=== PATIENT | male | born 1955 | race Caucasian/White ===

== ENCOUNTER → 2024-06-01 | Outpatient (CLI) | payer MEDICARE ==
[2024-06-01 18:40] LABS: Basophils # (A) 0.08 X 10*3/uL (0.00-0.10); Eosinophils # (A) 0.26 X 10*3/uL (0.04-0.35); Eosinophils % (A) 3.4 %; HCT 45.5 % (39.6-50.0); HGB 15.4 g/dL (13.0-17.0); Lymphocytes # (A) 2.34 X 10*3/uL (0.90-5.00); Lymphocytes % (A) 30.4 %; MCHC 33.8 g/dL (32.0-37.0); MCV 88.5 FL (80.0-97.0); Mean Platelet Volume 11.6 FL (9.5-12.2); Monocytes # (A) 0.65 X 10*3/uL (0.20-1.00); Monocytes % (A) 8.4 %; NRBC Per 100 WBC 0 X 10*3/uL (0.00-0.01); Neutrophils # (A) 4.35 X 10*3/uL (1.80-7.70); Neutrophils % (A) 56.4 %; Platelet Count 294 X 10*3/uL (140-440); RBC 5.14 X 10*6/uL (4.40-5.60); RDW 12.4 % (11.5-14.5); WBC 7.71 X 10*3/uL (4.50-10.00)
[2024-06-01 19:04] LABS: Protein, Total 6.5 g/dL (6.2-8.2)
[2024-06-01 19:21] LABS: ALT 243 U/L (10-49); AST 122 U/L (14-35); Albumin/Globulin Ratio 1.74 Ratio (1.60-3.17); Alkaline Phosphatase 462 U/L (41-126); BUN/Creat Ratio 13.89 Ratio (12.00-20.00); Blood Urea Nitrogen 12.5 mg/dL (9.0-27.0); Calcium 9.1 mg/dL (8.7-10.3); Carbon Dioxide 23.1 mmol/L (21.6-31.8); Chloride 102 mmol/L (96-109); Globulin 2.3 g/dL (1.6-3.3); Glucose 186 mg/dL (70-110); Hepatitis B Surface Antigen Nonreactive (Nonreactive); Hepatitis C IgG Antibody Nonreactive (Nonreactive); Iron 104 UG/DL (65-175); Potassium 4.2 mmol/L (3.5-5.5); Sodium 138 mmol/L (135-145); Total Bilirubin 0.8 mg/dL (0.3-1.2); Total Iron Binding Capacity 318 UG/DL (228-460); Total Protein 6.3 g/dL (6.2-8.2)
[2024-06-01 19:34] LABS: Ceruloplasmin 27.5 mg/dL (20.0-60.0)
== END | disposition home or self-care (01) ==
LOC: LABWHC1 15:40
PROVIDERS: ATTEND Internal Medicine Gastroenterology
DX: R74.01 Elevation of levels of liver transaminase levels (principal)
CPT/HCPCS: 36415; 80053; 82103; 82390; 82728; 83516; 83540; 83550; 84165; 85025; 86038; 86803; 87340

== ENCOUNTER → 2024-07-16 | Outpatient (CLI) | payer MEDICARE ==
--- NOTE | 2024-07-16 13:19 | MR ---
EXAMINATION TYPE: MR MRCP DATE OF EXAM: 07/16/2024 12:54 PM COMPARISON: None. CLINICAL INDICATION: Male, 69 years old with history of R74.01 ELEVATION OF LEVELS OF LIVER TRANSAMIN ASE L; TECHNIQUE: Multi planar, T2-weighted imaging with and without fat saturation and chemical shift imag ing was performed of the abdomen. Then, heavily T2 weighted imaging (half-Fourier acquisition single- shot turbo spin-echo) was utilized in order to study the biliary system. Maximum intensity projectio n images were reconstructed from the original data of the biliary tree. 3D images were created on a [employer] work station. No Gadolinium given. FINDINGS: Lower Thorax: No evidence for acute process. MRCP: * The intrahepatic ducts are dilated centrally. * The extrahepatic ducts are dilated * The common hepatic duct measures 19 mm in size. * The common bile duct at the level of the pancreatic head measures 15 mm in size there is a large s tone in the common duct measuring up to 28 x 15 mm. * The pancreatic duct is dilated with multiple filling defects seen near the great neck.. * The gallbladder is surgically absent with cystic duct remnant. Abdomen: Liver: No evidence for hepatic steatosis or cirrhosis. Pancreas: Ductal prominence with filling defects seen in the pancreatic neck. Series 411 image 18.. N o evidence for solid mass. Spleen: Normal for size. Adrenal glands: Unremarkable. Kidneys: No evidence for obstructive uropathy. No suspicious renal masses. Stomach and Bowel: No evidence for bowel wall thickening or evidence for obstruction. The appendix is normal. Retroperitoneum/Peritoneum: No evidence of pneumoperitoneum or free fluid. Vasculature: No aortic aneurysm. Musculoskeletal: The osseous structures appear intact. Lymph Nodes: No gross evidence for lymphadenopathy. Abdominal wall: Unremarkable. IMPRESSION: 1. Choledocholithiasis with Large stone in the common duct measuring up to 20 x 15 mm. 2. Multiple possible stones in the main pancreatic duct near the pancreatic neck versus tortuosity t o the duct. No masses definitively visualized at the ampulla given dilation pancreatic duct. Pancreat ic main duct dilation could be secondary to postcholecystectomy physiology. [facility], , 07/16/2024 1:17 PM
[2024-07-16 21:15] LABS: Basophils # (A) 0.07 X 10*3/uL (0.00-0.10); Basophils % (A) 0.8 %; Eosinophils # (A) 0.26 X 10*3/uL (0.04-0.35); HCT 46.1 % (39.6-50.0); HGB 15.6 g/dL (13.0-17.0); Lymphocytes # (A) 2.24 X 10*3/uL (0.90-5.00); Lymphocytes % (A) 26.2 %; MCH 30.8 pg (27.0-32.0); MCHC 33.8 g/dL (32.0-37.0); MCV 90.9 FL (80.0-97.0); Mean Platelet Volume 11.8 FL (9.5-12.2); Monocytes # (A) 0.69 X 10*3/uL (0.20-1.00); Monocytes % (A) 8.1 %; NRBC Per 100 WBC 0 X 10*3/uL (0.00-0.01); Neutrophils # (A) 5.23 X 10*3/uL (1.80-7.70); Neutrophils % (A) 61.2 %; Platelet Count 277 X 10*3/uL (140-440); RBC 5.07 X 10*6/uL (4.40-5.60); RDW 13.2 % (11.5-14.5); WBC 8.55 X 10*3/uL (4.50-10.00)
[2024-07-16 21:19] LABS: ALT 215 U/L (10-49); AST 129 U/L (14-35); Alkaline Phosphatase 602 U/L (41-126); BUN/Creat Ratio 13.88 Ratio (12.00-20.00); Blood Urea Nitrogen 11.1 mg/dL (9.0-27.0); Calcium 9.1 mg/dL (8.7-10.3); Carbon Dioxide 20.4 mmol/L (21.6-31.8); Chloride 104 mmol/L (96-109); Globulin 2.5 g/dL (1.6-3.3); Glucose 114 mg/dL (70-110); Potassium 4.3 mmol/L (3.5-5.5); Sodium 136 mmol/L (135-145); Total Protein 6.5 g/dL (6.2-8.2)
== END | disposition home or self-care (01) ==
LOC: RADMRIMAIN 11:27
PROVIDERS: ATTEND Internal Medicine Gastroenterology
DX: K80.50 Calculus of bile duct without cholangitis or cholecystitis without obstruction (principal); R74.01 Elevation of levels of liver transaminase levels
CPT/HCPCS: 74181; 80053; 85025